=== PATIENT | male | born 1985 | race African-American/Black ===

== ENCOUNTER 2020-07-28 12:30 | Emergency (ER) | payer MEDICAID ==
[~2020-07-28] VITALS: Ht 193 cm; Wt 84.0 kg
[2020-07-28 12:39] VITALS: BP 112/69
[2020-07-28] MEDS ORDERED: LIDOCAINE HCL 1% 20ML VIAL (Pyxis) INJ INFIL ONE (13:00)
[2020-07-28] MEDS ORDERED: ACETAMINOPHEN 500MG TABLET PO ONE (13:00)
[2020-07-28] MEDS ORDERED: TETANUS, DIPHTHERIA, PERTUSSIS VAC/PF 0.5ML (>7YR OLD) IM ONE (13:00)
== END 2020-07-28 14:08 | disposition home or self-care (01) ==
LOC: ER 12:44
DX: S61.211A Laceration without foreign body of left index finger without damage to nail, initial encounter (principal); W26.0XXA Contact with knife, initial encounter; Y93.89 Activity, other specified; Y92.89 Other specified places as the place of occurrence of the external cause; Y99.8 Other external cause status
CPT/HCPCS: 12002; 90471; 90715; 99283; J3490; Z7610

== ENCOUNTER 2024-02-28 00:08 | Emergency (ER) | payer MEDICAID ==
[~2024-02-28] VITALS: Ht 190.5 cm; Wt 93.0 kg
[2024-02-28 00:21] VITALS: O2SAT 100
[2024-02-28] MEDS: IBUPROFEN 600MG TABLET PO ONE (00:48)
[2024-02-28] MEDS ORDERED: NAPR220C61 MT (00:51)
[2024-02-28 01:46] VITALS: BP 146/74; PULSE 85; RESP 18; TEMP 36.89184; O2SAT 99
== END 2024-02-28 01:48 | disposition home or self-care (01) ==
LOC: ER 00:08
DX: S69.82XA Other specified injuries of left wrist, hand and finger(s), initial encounter (principal); G89.11 Acute pain due to trauma; Y08.89XA Assault by other specified means, initial encounter; Y93.89 Activity, other specified; Y92.89 Other specified places as the place of occurrence of the external cause; Y99.8 Other external cause status
CPT/HCPCS: 29125; 73120; 99283

== ENCOUNTER 2024-03-02 18:44 | Emergency (ER) | payer MEDICAID, OTHER ==
[~2024-03-02] VITALS: Ht 190.5 cm; Wt 95.0 kg
[~2024-03-02 18:44] MED LIST: NAPR220C61 MT
[2024-03-02 18:48] VITALS: O2SAT 100
[2024-03-02] MEDS: MORPHINE SULFATE 4 MG/ML INJ (FOR IV/IM USE) IV ONE (19:57)
[2024-03-02 19:58] LABS: BASOPHILS % 0.7 % (0.0-2.0); EOSINOPHILS % 1.2 % (0.0-5.0); HEMATOCRIT. 39.2 % (42.0-52.0); LYMPHOCYTES % 18.8 % (20.0-50.0); MEAN CORPUSCULAR HEMOGLOBIN 28.7 pg (28.0-32.0); MEAN CORPUSCULAR HGB CONC 33.1 g/dL (31.0-37.0); MEAN CORPUSCULAR VOLUME 86.6 fL (80.0-94.0); MEAN PLATELET VOLUME 8.5 fl (7.4-10.4); MONOCYTES % 11.9 % (2.0-8.0); NEUTROPHILS % 67.4 % (40.0-76.0); PLATELET 229 x1000/uL (130-400); RED BLOOD CELL COUNT 4.52 mill/uL (4.7-6.1); RED CELL DISTRIBUTION WIDTH 13.3 % (11.6-14.6); WHITE BLOOD COUNT 6.7 x1000/uL (4.5-11.0)
[2024-03-02 20:01] LABS: CHLORIDE 108 mEq/L (98-107); POTASSIUM 3.8 mEq/L (3.5-5.1); SODIUM 141 mEq/L (136-145)
[2024-03-02 20:02] LABS: CALCIUM 9.3 mg/dL (8.7-10.4); CARBON DIOXIDE 29 mEq/L (21-32)
[2024-03-02 20:07] LABS: CREATININE 1.2 mg/dL (0.6-1.3); GLUCOSE 95 mg/dL (70-105); UREA NITROGEN BLOOD 9 mg/dL (9-23)
[2024-03-02 20:09] LABS: ALANINE AMINOTRANSFERASE 37 IU/L (10-49); ALBUMIN 4.7 g/dL (3.2-4.8); ASPARTATE AMINOTRANSFERASE 39 IU/L (<34); BILIRUBIN TOTAL 0.6 mg/dL (0.1-1.0); PROTEIN TOTAL 8.2 g/dL (6.0-8.3)
[2024-03-02 20:17] LABS: CLARITY URINE CLEAR (CLEAR); COLOR URINE DARK YELLOW (YELLOW); GLUCOSE URINE NEGATIVE (NEGATIVE); KETONES URINE TRACE (NEGATIVE); LEUKOCYTE ESTERASE URINE NEGATIVE (NEGATIVE); NITRITE URINE NEGATIVE (NEGATIVE); OCCULT BLOOD URINE TRACE (NEGATIVE); PH URINE 5.5 (4.5-8.0); PROTEIN URINE 1+ (NEGATIVE); SPECIFIC GRAVITY URINE 1.037 (1.005-1.030)
[2024-03-02 20:28] LABS: MUCUS URINE 1+ /lpf (NONE/TRACE); SQUAMOUS EPITHELIAL CELL URINE RARE /lpf (RARE/1+); WBC URINE NONE SEEN /hpf (0-2)
[2024-03-02 20:29] LABS: BACTERIA URINE NONE SEEN
[2024-03-02] MEDS ORDERED: AMOX1TAB16 MT (21:48)
[2024-03-02] MEDS ORDERED: KETO10TA2 MT (21:48)
[2024-03-02 22:49] VITALS: BP 126/83; PULSE 67; RESP 15; TEMP 36.83628; O2SAT 98
== END 2024-03-02 22:55 | disposition home or self-care (01) ==
LOC: ER 18:44
DX: N48.22 Cellulitis of corpus cavernosum and penis (principal); N48.89 Other specified disorders of penis
CPT/HCPCS: 80053; 81003; 85025; 86850; 86900; 86901; 36415; 72193; 96374; 99285; J2270; Z7610